=== PATIENT | female | born 1975 ===

== ENCOUNTER 2025-10-18 11:15 | Inpatient (IN) | payer OTHER ==
[~2025-10-18] VITALS: Ht 157.5 cm; Wt 63.0 kg
[2025-10-18] MEDS ORDERED: FERROUS SULFAT325 M2 PO (12:59)
[2025-10-18 13:05] VITALS: BP 137/82
[2025-10-30] MEDS ORDERED: CEFOXITIN SODIUM 2,000 MG VIAL IV ONE (10:46)
[2025-10-30] MEDS ORDERED: POVIDONE-IODINE 118 ML BOTT TOP ONE (13:05)
[2025-10-30] MEDS ORDERED: SUGAMMADEX SODIUM 200 MG/2 ML VIAL IV ONE (14:29)
[2025-10-30] MEDS ORDERED: MORPHINE SULFATE 4 MG/ML VIAL IV SCH (16:00)
[2025-10-30] MEDS ORDERED: PROMETHAZINE HCL 25 MG/ML AMPUL IV SCH (16:00)
[2025-10-30 17:45] LABS: BASO % 0.2 % (0.1-1.2); EOS # 0.09 (0.04-0.54); EOS % 0.5 % (0.7-7.0); LYMPH # 0.99 (1.18-3.74); LYMPH % 5.9 % (19.3-53.1); MEAN PLATELET VOLUME 11.30 fl (9.4-12.4); MONO # 0.82 (0.24-0.82); MONO % 4.9 % (4.7-12.5); NEUT # 14.77 (1.56-6.13); NEUT % 88.0 % (34.0-71.1); RED CELL DISTRIBUTION WIDTH 18.2 % (11.6-14.4)
[2025-10-31 02:10] VITALS: BP 122/76
[2025-10-31] MEDS ORDERED: SIMETHICONE 125 MG CAPSULE PO SCH (05:00)
[2025-10-31] MEDS ORDERED: GABAPENTIN 300 MG CAPSULE PO SCH (05:00)
[2025-10-31 08:44] VITALS: BP 126/77
[2025-10-31 16:47] VITALS: BP 123/69
[2025-11-01] VITALS: BP 95/60
[2025-11-01] MEDS ORDERED: GABAPENTIN300 MG PO (07:10)
[2025-11-01] MEDS ORDERED: IBUPROFEN800 MG PO (07:10)
[2025-11-01] MEDS ORDERED: SIMETHICONE125 M1 PO (07:10)
[2025-11-01 08:00] VITALS: BP 104/66
== END 2025-11-01 10:23 | disposition home or self-care (01) | DRG 743 ==
LOC: OB/GYN 10-30 10:00 → O/R 10-30 10:00 → SURH 10-30 11:15 → OB/GYN 10-30 16:33
PROVIDERS: ADMIT Obstetrics & Gynecology; ATTEND Obstetrics & Gynecology
PROC: 0UT70ZZ Resection of Bilateral Fallopian Tubes, Open Approach (ICD-10-PCS; 2025-10-30)
PROC: 0UT90ZZ Resection of Uterus, Open Approach (ICD-10-PCS; principal; 2025-10-30 12:30)
DX: D25.1 Intramural leiomyoma of uterus (principal); N80.03 Adenomyosis of the uterus; D64.9 Anemia, unspecified